=== PATIENT | female | born 1985 | race Two or more races ===

== ENCOUNTER 2024-08-04 14:58 | Emergency (ER) | payer MEDICAID, SELFPAY ==
[2024-08-04 15:14] VITALS: BP 125/64; PULSE 67; RESP 18; TEMP 36.6; O2SAT 99
--- NOTE | 2024-08-04 15:17 | XR_ITS ---
Examination: CT abdomen and pelvis without contrast. Coronal 3-D reconstructions. Sagittal 2-D reconstructions. Date and time of exam:August 04, 2024 1708 hrs. Indications: Abdominal pain beginning March 2024 CTDI: vol (mGy): 10.8 DLP: (mGycm): 659 Technique: Axial images of the abdomen have been obtained, 3 mm slice thickness Intravenous contrast material has not been administered. Low dose protocols were performed. One or more of the following dose reduction techniques were used; automated exposure control, adjustment of the mA and/or KV according to patient size, use of iterative reconstruction technique. Findings: No focal liver or splenic lesions No gallstones No pancreatic or adrenal mass No renal or ureteral calculi, no hydronephrosis 12 mm fat-containing umbilical hernia Normal appendix No bowel obstruction No diverticulitis Anteverted uterus No adnexal mass Urinary bladder intact Osseous structures intact Impression: No acute process in the abdomen or pelvis
--- NOTE | 2024-08-04 15:17 | XR_ITS ---
Examination: Pelvic ultrasound, transabdominal, complete Technique: Transabdominal ultrasound of the pelvis performed using grayscale imaging Date and time of exam: August 04, 2024 1605 hours INDICATIONS: Pelvic pain beginning one month ago FINDINGS: Uterus 8.8 x 4.3 x 5.6 cm No uterine mass or intrauterine gestation Endometrial sign 0.4 cm Right ovary 2.9 x 2.3 x 3.1 cm arterial flow 15 mm cyst Left ovary 2.8 x 1.4 x 2.3 cm arterial flow IMPRESSION: Negative examination
[2024-08-04 15:34] LABS: Basophils % (Auto) 0 % (0-2.5); Eosinophils # (Auto) 0.3 Thou/mm3 (0.0-0.5); Eosinophils % (Auto) 6 % (0-10); Immature Granulocytes % (Auto) 0 % (0-0); Immature Granulocytes Auto 0.02 Thou/mm3 (0.00-0.00); Lymphocytes # (Auto) 1.5 Thou/mm3 (1.0-4.8); Lymphocytes % (Auto) 27 % (10-50); Mean Corpuscular HGB Conc 34.2 g/dl (31.0-37.0); Mean Corpuscular Hemoglobin 29.6 pg (25.0-35.0); Mean Corpuscular Volume 87 fL (80-100); Monocytes # (Auto) 0.6 Thou/mm3 (0.0-0.8); Monocytes % (Auto) 11 % (0-12); Neutrophils # (Auto) 3.2 Thou/mm3 (1.8-7.7); Neutrophils % (Auto) 56 % (37-80); Nucleated Red Blood Cell % 0 /100 WBC (0); Platelet Count 254 Thou/mm3 (140-440); RDW Standard Deviation 39.3 fL (36.4-46.3); Red Blood Count 4.39 Miln/mm3 (4.00-5.20); White Blood Count 5.6 Thou/mm3 (3.6-11.0)
[2024-08-04 15:53] LABS: Alanine Aminotransferase 42 U/L (10-49); Albumin, Serum 4.8 gm/dL (3.5-5.0); Albumin/Globulin Ratio 1.6 (1.2-2.2); Alkaline Phosphatase 85 U/L (46-116); Anion Gap 6 (7-16); Aspartate Amino Transferase 35 U/L (0-34); BUN/Creatinine Ratio 11 Ratio (12-20); Bilirubin,Total 0.3 mg/dL (0.3-1.2); Blood Urea Nitrogen 8 mg/dL (9-23); Calcium 9.4 mg/dL (8.3-10.6); Calcium (Corrected) 9.4 mg/dL (8.5-10.1); Carbon Dioxide 29.3 mMol/L (20.0-31.0); Chloride 102 mMol/L (98-107); Creatinine (Component) 0.7 mg/dL (0.6-1.3); Glucose 93 mg/dL (74-106); Lipase 35 U/L (12-53); Osmolality,Calculated 272 (275-295); Potassium 3.9 mMol/L (3.4-5.1); Sodium 137 mMol/L (136-145); Total Protein 7.8 gm/dL (5.7-8.2); eGFR > 60 See Note
[2024-08-04 16:32] LABS: Collection Type, Urine Clean Catch
--- NOTE | 2024-08-04 16:35 | PD.EDRME ---
Rapid Medical Screening Exam RME Arrival date/time: 08/04/24 14:58 39-year-old female presents emergency department complains of back pain, abdominal pain and pelvic pain as well as dysuria Chief Complaint: Abdominal Pain Vital signs: Vital Signs Temperature 98 F 08/04/24 15:14 Pulse Rate 67 08/04/24 15:14 Respiratory Rate 18 08/04/24 15:14 Blood Pressure 125/64 08/04/24 15:14 Pulse Oximetry (%) 99 08/04/24 15:14 Oxygen Delivery Method Room Air 08/04/24 15:14
[2024-08-04 16:44] LABS: Bilirubin,Urine Negative (Negative); Blood,Urine Negative (Negative); Clarity,Urine Clear (Clear/Hazy); Color,Urine Lt-Yellow (Lt Yel-Yel); Culture Indicated,Urine Not Indicated; Glucose, Urine Negative (Negative); HCG Qualitative,Urine Negative; Ketones,Urine Negative (Negative); Leukocyte Esterase,Urine Negative (Negative); Nitrite,Urine Negative (Negative); PH,Urine 6.5 (5.0-7.0); Protein,Urine Negative (Neg - Trace); RBC,Urine < 1 /hpf (0-3); Specific Gravity,Urine 1.016 (1.001-1.035); Squamous Epithelial Cell,Urine 2 /hpf (0-5); Urobilinogen,Urine Negative mg/dL (0.0-1.0); WBC,Urine < 1 /hpf (0-5)
--- NOTE | 2024-08-04 16:50 | EDNOTE_ITS ---
ED General RME/HPI General Chief complaint: Abdominal Pain Stated complaint: abdominal pain since march. Dx: cysts Time Seen by Provider: 08/04/24 16:48 Arrival date/time: 08/04/24 14:58 CC: The back pain abdominal pain HPI ongoing for 1 week. Patient also states that she has dysuria. RME / HPI RME / HPI narrative: 08/04/24 14:58 39-year-old female presents emergency department complains of back pain, abdominal pain and pelvic pain as well as dysuria Related Data Home Medications ?Medication ?Instructions ?Recorded ?Confirmed vit no.95-ferrous 1 tab PO QDAY 03/16/18 09/07/18 fumarate 28 mg-folic acid 800 mcg tablet () Previous Rx's ?Medication ?Instructions ?Recorded hydrocodone 5 mg-acetaminophen 300 1 tab PO QID PRN pain #30 tabs 09/08/18 mg tablet (Vicodin) meloxicam 7.5 mg tablet 7.5 mg PO QDAY #10 tabs 08/04/24 Allergies Allergy/AdvReac Type Severity Reaction Status Date / Time No Known Allergies Allergy Verified 01/30/24 22:17 Review of Systems Review of Systems Narrative Review of Systems: GEN: No fever, no chills, no weight loss EYES: No discharge, no visual changes, no pain HEENT: No ear pain, no congestion, no sore throat PULM: No shortness of breath, no cough, no congestion CV: No chest pain, no dyspnea on exertion, no palpitations GI: No nausea, no vomiting, no diarrhea, + pain, no constipation : No frequency, no urgency, no dysuria MUSC/SKEL: No joint pain, no back pain SKIN: No rash PSYCH: No hallucinations, no depression HEME/LYMPH: No easy bleeding or bruising tendencies NEURO: No weakness, no headache Past Medical History Past Medical History NEUROLOGIC: Negative Neurological Disorders or Seizures CARDIAC: Negative Cardiac Disorders or Congestive Heart Failure RESPIRATORY: Negative Chronic Obstructive Pulmonary Disease (COPD) GASTROINTESTINAL: Negative Gastrointestinal Disorders or Hepatitis GENITOURINARY: Negative Genitourinary Disorders or Renal Disease MUSCULOSKELETAL: Negative Musculoskeletal Disorders ENDOCRINE: Negative Endocrine Disorders, Diabetes Mellitus Type 1 or Diabetes Mellitus Type 2 HEMATOLOGIC: Negative Blood Disorders OTHER HISTORY: Positive Blood Transfusions; Negative Hospitalization, Autoimmune Disease, Down Syndrome, Developmental Delay, Shingles, Falls, Blood Transfusion Reaction, Anesthesia Reactions, MRSA, Vancomycin-Resistant Enterococci, Human Immunodeficiency Virus (HIV), Chicken Pox, Measles, Mumps, Rubella (Tristanian Measles), Pertussis or Clostridium Difficile Family History FAMILY HISTORY: Negative Family Psychiatric Problems, Family Respiratory Disorders, Family Cardiac Disorders, Family Gastrointestinal Problems, Family Cancer, Family Surgery or Family Anesthesia Reaction Surgical History SURGICAL: Positive Abdominal Surgery; Negative Section Social History SMOKING STATUS: Never smoker ED Exam Narrative Physical exam: [General: Obese not in any acute distress Head normocephalic HEENT: Within acceptable limits Neck is supple nontender Chest equal chest rise nontender to palpation Respiratory: Clear to auscultation no wheezes crackles or rubs CV: Rate rhythm is regular no murmurs rubs or clicks Abdomen is distended secondary to body habitus soft nontender no masses positive bowel sounds all 4 quadrants Back: Mild lumbar paraspinal tenderness with palpation. No thoracic or cervical spine tenderness with palpation. Skin: Intact no petechiae rash induration ulceration or crepitus Extremities: Moving all extremity against resistance cap refill less than 2 seconds neurosensory intact Neuro: Awake alert oriented x3 Glascow coma 15 no focal deficits] Course Quality Measures VTE prophylaxis Orders Category Date Time Status CT abdomen pelvis wo con Stat Exams 08/04/24 15:17 Completed US pelvic complete Stat Exams 08/04/24 15:17 Completed CBC Stat Lab 08/04/24 15:20 Completed Comprehensive Metabolic Panel Stat Lab 08/04/24 15:20 Completed HCG Qualitative,Urine Stat Lab 08/04/24 16:20 Completed Lipase Stat Lab 08/04/24 15:20 Completed UA, C/S IF [Urinalysis, C/S if Indicated] Stat Lab 08/04/24 16:20 Completed Ketorolac Inj [Toradol Inj] Med 08/04/24 19:13 Discontinued 30 mg IM X1 ONE Vital Signs Vital signs: Vital Signs Temperature 98 F 08/04/24 15:14 Pulse Rate 67 08/04/24 15:14 Respiratory Rate 18 08/04/24 15:14 Blood Pressure 125/64 08/04/24 15:14 Pulse Oximetry (%) 99 08/04/24 15:14 Oxygen Delivery Method Room Air 08/04/24 15:14 [facility] Patient data External records reviewed:: [facility] previous records Clinical information provided by:: patient Social determinants that could affect healthcare access:: none Patient has the following chronic illnesses:: Obesity How is presenting disease/condition affected by chronic disease/condition?: u neffected by Evaluation data The following diagnostics were reviewed and interpreted by me:: lab results and radiology exam(s) Lab and/or radiology exams considered but not ordered:: CBC shows no acute leukocytosis anemia thrombocytopenia CMP shows no acute electrolyte imbalances renal impairment transaminitis or T. bili elevation Lipase is normal Urine is negative for UTI Interpretation Summary: Low abdominal pain Medications Medications considered but not ordered:: None Medication administrations:: Medication Administration History Discontinued Medications Ketorolac Tromethamine (Ketorolac Inj 60 Mg/2 Ml Vial) 30 mg IM X1 ONE Stop: 08/04/24 19:14 None Consultations Consultation(s) initiated? (list below): No Diagnosis Differential Diagnosis ED Complaint MDM: Low back strain abdominal pain ovarian cyst UTI Most likely diagnosis given after review of the tests above:: Low back strain abdominal pain Admission Indicated Admission indicated?: not indicated Explain why admission is indicated or not indicated:: Stable Admission Request Was there a request for admission?: No Disposition Plan Disposition Plan: Discharge Discharge Attestation Discharge Attestation: The patient and all family members were given an opportunity to ask questions and understood the discharge instructions. Discharge instructions specifically effects, indications for sooner follow up or return to the emergency department, and the expected course of current diagnosis. Patient condition: Stable Medical Decision Making Differential Diagnosis Differential Diagnosis: Low back strain abdominal pain ovarian cyst UTI Lab Data 08/04/24 15:20 08/04/24 15:20 Labs: Lab Results 08/04/24 08/04/24 Range/Units 15:20 16:20 WBC 5.6 (3.6-11.0) Thou/mm3 RBC 4.39 (4.00-5.20) Miln/mm3 Hgb 13.0 (12.0-16.0) g/dL Hct 38.0 (36.0-46.0) % MCV 87 (80-100) fL MCH 29.6 (25.0-35.0) pg MCHC 34.2 (31.0-37.0) g/dl RDW Std Deviation 39.3 (36.4-46.3) fL Plt Count 254 (140-440) Thou/mm3 Neut % (Auto) 56 (37-80) % Lymph % (Auto) 27 (10-50) % [place] % (Auto) 11 (0-12) % Eos % (Auto) 6 (0-10) % Baso % (Auto) 0 (0-2.5) % Neut # (Auto) 3.2 (1.8-7.7) Thou/mm3 Lymph # (Auto) 1.5 (1.0-4.8) Thou/mm3 [place] # (Auto) 0.6 (0.0-0.8) Thou/mm3 Eos # (Auto) 0.3 (0.0-0.5) Thou/mm3 Baso # (Auto) 0.0 (0.0-0.2) Thou/mm3 Immature Gran # (Auto) 0.02 H (0.00-0.00) Thou/mm3 Absolute Nucleated RBC 0.00 (0.00-0.00) Thou/mm3 Immature Gran % 0 (0-0) % Nucleated RBC % 0 (0) /100 WBC Sodium 137 (136-145) mMol/L Potassium 3.9 (3.4-5.1) mMol/L Chloride 102 (98-107) mMol/L Carbon Dioxide 29.3 (20.0-31.0) mMol/L Anion Gap 6 L (7-16) BUN 8 L (9-23) mg/dL Creatinine 0.7 (0.6-1.3) mg/dL Estim Creat Clear Calc Not Performed. eGFR > 60 (60 - ) See Note BUN/Creatinine Ratio 11 L (12-20) Ratio Glucose 93 (74-106) mg/dL Calculated Osmolality 272 L (275-295) Calcium 9.4 (8.3-10.6) mg/dL Corrected Calcium 9.4 (8.5-10.1) mg/dL Total Bilirubin 0.3 (0.3-1.2) mg/dL AST 35 H (0-34) U/L ALT 42 (10-49) U/L Alkaline Phosphatase 85 (46-116) U/L Total Protein 7.8 (5.7-8.2) gm/dL Albumin 4.8 (3.5-5.0) gm/dL Globulin 3.0 (2.3-3.5) gm/dL Albumin/Globulin Ratio 1.6 (1.2-2.2) Lipase 35 (12-53) U/L Ur Collection Type Clean Catch Urine Color Lt-Yellow (Lt Yel-Yel) Urine Clarity Clear (Clear/Hazy) Urine pH 6.5 (5.0-7.0) Ur Specific [place] 1.016 (1.001-1.035) Urine Protein Negative (Neg - Trace) Urine Glucose (UA) Negative (Negative) Urine Ketones Negative (Negative) Urine Blood Negative (Negative) Urine Nitrite Negative (Negative) Urine Bilirubin Negative (Negative) Urine Urobilinogen (Auto) Negative (0.0-1.0) mg/dL Ur Leukocyte Esterase Negative (Negative) Urine RBC < 1 (0-3) /hpf Urine WBC < 1 (0-5) /hpf Ur Squamous Epith Cells 2 (0-5) /hpf Urine Bacteria None (None) Ur Culture Indicated? Not Indicated Urine HCG, Qual Negative Discharge Plan Plan Patient Disposition: HOME (Self Care) Patient condition on transfer: Stable Prescriptions/Referrals Prescriptions/Med Rec: New meloxicam 7.5 mg tablet 7.5 mg PO QDAY Qty: 10 0RF No Action PNV cmb#95-ferrous fumarate-FA [] 28 mg iron- 800 mcg Tablet 1 tab PO QDAY hydrocodone-acetaminophen [Vicodin] 5-300 mg tablet 1 tab PO QID MDD 5 PRN (Reason: pain) Qty: 30 0RF Referrals: Fer Livingston MD [Primary Care Provider] - In 1 week Problem List Clinical Impression: Abdominal pain, Low back pain Patient/Caregiver Discharge Instructions Other Activity Instructions:: Take the medications as prescribed if there is a worsening of symptoms follow-up with your primary care doctor. Or return to the emergency room for reevaluation. Education Materials: Abdominal Pain, Back Safety: Basics of Good Posture, ED Back and Neck Pain, General Print Language: Kinyarwanda Stand Alone Forms: Anahy Award Info., Patient Portal Info Letter, Work/School Release PA/LEONIDES Supervising Physician PA/LEONIDES Supervising Physician: Syd Awan ENP
[2024-08-04 17:19] VITALS: BP 107/71; PULSE 63; RESP 16; TEMP 36.4; O2SAT 97
[2024-08-04] MEDS: KETOROLAC INJ 60 MG/2 ML VIAL 30 MG IM (19:31)
== END 2024-08-04 19:39 | disposition home or self-care (01) ==
PROVIDERS: Nurse Practitioner Primary Care; Emergency Provider Emergency Medicine; PCP Family Medicine
DX: R10.9 Unspecified abdominal pain (principal); M54.50 Low back pain, unspecified; R10.2 Pelvic and perineal pain
CPT/HCPCS: 36415; 74176; 76856; 80053; 81001; 81025; 83690; 85025; 96372; 99284; J1885

== ENCOUNTER → 2024-09-24 | Outpatient (BNVA) | payer MEDICAID, SELFPAY | END | disposition home or self-care (01) | PROVIDERS: PCP Nurse Practitioner Family; Referring Provider Nurse Practitioner Family; Visit Provider Nurse Practitioner Family | DX: H66.92 Otitis media, unspecified, left ear (principal); J06.9 Acute upper respiratory infection, unspecified | CPT/HCPCS: 87804; 87811; 99212 ==

== ENCOUNTER 2025-03-07 09:18 | Emergency (ER) | payer MEDICAID, SELFPAY ==
[2025-03-07 09:39] VITALS: BP 125/84; PULSE 70; RESP 17; TEMP 36.9; O2SAT 98; BMI 32.4
--- NOTE | 2025-03-07 09:51 | XR_ITS ---
Examination: CT abdomen and pelvis without contrast. Coronal 3-D reconstructions. Sagittal 2-D reconstructions. Date and time of exam:March 07, 2025 1128 hours Comparison May 05, 2014 INDICATIONS: Lower abdominal pain nausea vomiting today CTDI: vol (mGy): 10.7 DLP: (mGycm): 647 Technique: Axial images of the abdomen have been obtained, 3 mm slice thickness Intravenous contrast material has not been administered. Low dose protocols were performed. One or more of the following dose reduction techniques were used; automated exposure control, adjustment of the mA and/or KV according to patient size, use of iterative reconstruction technique. Findings: No focal liver or splenic lesions No gallstones No pancreatic edema. No renal or ureteral calculi, no hydronephrosis Tiny fat-containing umbilical hernia No pericecal inflammatory change No bowel obstruction or diverticulitis No pelvic mass Contracted urinary bladder The osseous structures are intact IMPRESSION: No renal or ureteral calculi, no hydronephrosis No CT findings of appendicitis bowel obstruction or diverticulitis Osseous structures intact 12 mm fat-containing umbilical hernia
--- NOTE | 2025-03-07 09:52 | EDNOTE_ITS ---
ED Abdominal Pain RME/HPI General Chief Complaint: Abdominal Pain Stated complaint: LOWER ABD PAIN, NAUSEA X 1 MO, DIZZY Time seen by provider: 03/07/25 09:43 Arrival date/time: 03/07/25 09:18 39-year-old female with no known medical history presents to the emergency room with a chief complaint of lower pelvic pain, nausea x 1 month Source: patient Mode of arrival: ambulatory Limitations: no limitations Related Data Home Medications ?Medication ?Instructions ?Recorded ?Confirmed fexofenadine 180 mg tablet 180 mg PO QDAY 09/24/2403/11 ([facility]) Previous Rx's ?Medication ?Instructions ?Recorded ibuprofen 800 mg tablet 800 mg PO Q8H PRN pain #30 t abs 09/24/24 Allergies Allergy/AdvReac Type Severity Reaction Status Date / Time No Known Allergies Allergy Verified 03/07/25 09:22 Review of Systems Review of Systems Systems Reviewed: All systems reviewed, normal except as documented Constitutional Constitutional: Reports system reviewed and no additional complaints, except as documented, Denies fatigue, Denies fever(s), Denies headache(s) and Denies weakness Eyes Eyes: Reports system reviewed and no additional complaints, except as documented, Denies blurry vision and Denies change in vision ENT Ears, Nose, Mouth, and Throat: Reports system reviewed and no additional complaints, except as documented, Denies otalgia, Denies headache(s), Denies nasal congestion, Denies throat swelling and Denies vertigo Cardiovascular Cardiovascular: Reports system reviewed and no additional complaints, except as documented, Denies chest pain, Denies dyspnea and Denies dyspnea on exertion Respiratory Respiratory: Reports system reviewed and no additional complaints, except as documented, Denies chest congestion, Denies cough, Denies dyspnea, Denies dyspnea on exertion and Denies wheezing Gastrointestinal Gastrointestinal: Reports abdominal pain, Reports cramping, Reports nausea and Reports vomiting Genitourinary Genitourinary: Reports system reviewed and no additional complaints, except as documented Musculoskeletal Musculoskeletal: Reports system reviewed and no additional complaints, except as documented and Denies back pain Integumentary/Breasts Skin/Breast: Reports system reviewed and no additional complaints, except as documented and Denies wounds Neurologic Neurologic: Reports system reviewed and no additional complaints, except as documented, Denies confusion, Denies headache(s), Denies lack of coordination, Denies vertigo and Denies weakness Psychiatric Psychiatric: Reports system reviewed and no additional complaints, except as documented, Denies anxiety, Denies confusion, Denies depression, Denies paranoia, Denies suicidal ideation and Denies tactile hallucinations Endocrine Endocrine: Reports system reviewed and no additional complaints, except as documented and Denies fatigue Hematologic/Lymphatic Hematologic/Lymphatic: Reports system reviewed and no additional complaints, except as documented and Denies lymphadenopathy Allergic/Immunologic Allergic/Immunologic: Reports system reviewed and no additional complaints, except as documented, Denies throat swelling, Denies urticaria and Denies wheezing ED Exam General Limitations: Present no limitations General appearance: Present alert and in no apparent distress Head Head exam: Present atraumatic Eye Eye exam: Present normal appearance, PERRL and EOMI ENT ENT exam: Present normal exam, normal oropharynx and mucous membranes moist Neck Neck exam: Present normal inspection, full ROM and trachea midline Chest Chest inspection: Present normal inspection and symmetric chest wall rise Respiratory Respiratory exam: Present normal lung sounds bilaterally Cardiovascular Cardiovascular exam: Present regular rate, normal rhythm and normal heart sounds Abdominal Exam Abdominal exam: Present soft, tenderness and normal bowel sounds; Absent distention or guarding Abdominal tenderness: Present RUQ, RLQ, LUQ, LLQ, suprapubic and moderate Extremities Exam Extremities exam: Present normal inspection and full ROM Back Exam Back exam: Present normal inspection and full ROM Neurological Exam Neurological exam: Present alert, oriented X3 and CN II-XII intact Psychiatric Psychiatric exam: Present normal affect and normal mood Skin Skin exam: Present warm, dry, intact and normal color Course Quality Measures none Orders Category Date Time Status CT abdomen pelvis wo con Stat Exams 03/07/25 09:51 Completed CBC Stat Lab 03/07/25 10:01 Completed CMP [Comprehensive Metabolic Panel] Stat Lab 03/07/25 10:01 Completed HCG Qualitative,Urine Stat Lab 03/07/25 10:07 Completed Lipase Stat Lab 03/07/25 10:01 Completed UA [Urinalysis] Stat Lab 03/07/25 10:07 Completed Urine Culture Stat Lab 03/07/25 10:07 Received HYDROcodone*/APAP 5/325 [Cross[place] 5/325] Med 03/07/25 09:51 Discontinued 1 tab PO X1 ONE Ondansetron Odt [Zofran Odt] Med 03/07/25 09:52 Discontinued 4 mg PO X1 ONE Vital Signs Vital signs: Vital Signs Temperature 98.5 F 03/07/25 09:39 Pulse Rate 70 03/07/25 09:39 Respiratory Rate 17 03/07/25 09:39 Blood Pressure 125/84 03/07/25 09:39 Pulse Oximetry (%) 98 03/07/25 09:39 Oxygen Delivery Method Room Air 03/07/25 09:39 Abdominal Pain MDM MDM Narrative MDM Narrative:: 39-year-old female with no known medical history presents to the emergency room with a chief complaint of lower pelvic pain, nausea x 1 month Patient is hemodynamically stable and in no apparent distress Physical examination shows pain and tenderness to the lower pelvic area. Patient states she has a history of an umbilical hernia. A CT of the abdomen and pelvis was completed and shows no findings of any appendicitis bowel obstruction or diverticulitis. There was a 12 mm fat-containing umbilical hernia that is not incarcerated CBC CMP and urinalysis were within normal limits Patient was discharged and educated to follow-up with primary care provider in the next 24 to 48 hours and return to the emergency room for any evidence of worsening signs or symptoms Patient data External records reviewed:: [facility] previous records Clinical information provided by:: patient Social determinants that could affect healthcare access:: none Patient has the following chronic illnesses:: No chronic illness How is presenting disease/condition affected by chronic disease/condition?: no chronic disease Evaluation data The following diagnostics were reviewed and interpreted by me:: lab results and radiology exam(s) Lab and/or radiology exams considered but not ordered:: Labs and radiology exams considered in order Interpretation Summary: CT abdomen and pelvis-Findings: No focal liver or splenic lesions No gallstones No pancreatic edema. No renal or ureteral calculi, no hydronephrosis Tiny fat-containing umbilical hernia No pericecal inflammatory change No bowel obstruction or diverticulitis No pelvic mass Contracted urinary bladder The osseous structures are intact IMPRESSION: No renal or ureteral calculi, no hydronephrosis No CT findings of appendicitis bowel obstruction or diverticulitis Osseous structures intact 12 mm fat-containing umbilical hernia Medications / Prescriptions Medications or Prescriptions considered but not ordered:: Medication given Medication administrations:: Medication Administration History Discontinued Medications Hydrocodone Bitart/Acetaminophen (Hydrocodone/Apap 5/325 Tablet) 1 tab PO X1 ONE Stop: 03/07/25 09:52 Last Admin: 03/07/25 09:58 Dose: 1 tab Documented By: OA Ondansetron HCl (Ondansetron Odt 4 Mg Tabrap) 4 mg PO X1 ONE; Protocol Stop: 03/07/25 09:53 Last Admin: 03/07/25 09:59 Dose: 4 mg Documented By: JJ Medication given Consultations Consultation(s) initiated? (list below): No Diagnosis Differential diagnosis abdominal pain: abdominal pain, constipation, gastroenteritis and other (Incarcerated hernia/ovarian cyst) Most likely diagnosis given after review of the tests above:: Gastroenteritis Admission Indicated Admission indicated?: not indicated Admission Request Was there a request for admission?: No Disposition Plan Disposition Plan: Discharge Discharge Attestation Discharge Attestation: The patient and all family members were given an opportunity to ask questions and understood the discharge instructions. Discharge instructions specifically effects, indications for sooner follow up or return to the emergency department, and the expected course of current diagnosis. Patient condition: Stable Discharge Plan Plan Patient Disposition: HOME (Self Care) Discharge Disposition comment: Stable Prescriptions/Referrals Prescriptions/Med Rec: No Action fexofenadine [Erma Allergy] 180 mg tablet 180 mg PO QDAY ibuprofen 800 mg tablet 800 mg PO Q8H PRN (Reason: pain) Qty: 30 0RF Referrals: Fer Livingston MD [Primary Care Provider] - In 1 week Problem List Clinical Impression: Umbilical hernia, Gastroenteritis Patient/Caregiver Discharge Instructions Education Materials: ED Gastroenteritis, Noninfectious, ED Hernia (Adult) Additional Instructions: Por favor, consulte con solis m?dico de cabecera en las pr?ximas 24 a 48 horas. Se realiz? michael tomograf?a computarizada de abdomen y pelvis, la cual result? negativa para cualquier hallazgo yoseph. Solis hernia umbilical persiste. Por favor, consulte con solis m?dico de cabecera, ya que ser? necesario derivarlo a un cirujano general para extirpar esta hernia ambulatoria. Miri an?lisis de marlyn y orina se encontraron dentro de los l?mites normales. Si observa cualquier signo de empeoramiento de los signos o s?ntomas, acuda a urgencias de inmediato. Print Language: Slovenian Stand Alone Forms: Anahy Award Info., Patient Portal Info Letter PA/MANAGER NEW PRODUCT Supervising Physician PA/MANAGER NEW PRODUCT Supervising Physician: Dr. Escoto
[2025-03-07] MEDS: HYDROcodone/APAP 5/325 TABLET 1 TAB PO (09:58)
[2025-03-07] MEDS: ONDANSETRON ODT 4 MG TABRAP PO (09:59)
[2025-03-07 10:12] LABS: Collection Type, Urine Clean Catch
[2025-03-07 10:36] LABS: Basophils # (Auto) 0.0 Thou/mm3 (0.0-0.2); Basophils % (Auto) 0 % (0-2.5); Eosinophils # (Auto) 0.1 Thou/mm3 (0.0-0.5); Eosinophils % (Auto) 1 % (0-10); Hematocrit 35.4 % (36.0-46.0); Hemoglobin 11.9 g/dL (12.0-16.0); Immature Granulocytes Auto 0.02 Thou/mm3 (0.00-0.00); Lymphocytes # (Auto) 1.3 Thou/mm3 (1.0-4.8); Lymphocytes % (Auto) 28 % (10-50); Mean Corpuscular HGB Conc 33.6 g/dl (31.0-37.0); Mean Corpuscular Hemoglobin 29.9 pg (25.0-35.0); Mean Corpuscular Volume 89 fL (80-100); Monocytes # (Auto) 0.4 Thou/mm3 (0.0-0.8); Monocytes % (Auto) 8 % (0-12); Neutrophils # (Auto) 2.9 Thou/mm3 (1.8-7.7); Neutrophils % (Auto) 62 % (37-80); Nucleated Red Blood Cell # 0.00 Thou/mm3 (0.00-0.00); Nucleated Red Blood Cell % 0 /100 WBC (0); Platelet Count 302 Thou/mm3 (140-440); RDW Standard Deviation 42.7 fL (36.4-46.3); Red Blood Count 3.98 Miln/mm3 (4.00-5.20); White Blood Count 4.7 Thou/mm3 (3.6-11.0)
[2025-03-07 10:44] LABS: Alanine Aminotransferase 48 U/L (10-49); Albumin, Serum 4.5 gm/dL (3.5-5.0); Albumin/Globulin Ratio 1.7 (1.2-2.2); Alkaline Phosphatase 78 U/L (46-116); Anion Gap 12 (7-16); Aspartate Amino Transferase 37 U/L (0-34); BUN/Creatinine Ratio 10 Ratio (12-20); Bilirubin,Total 0.2 mg/dL (0.3-1.2); Blood Urea Nitrogen 6 mg/dL (9-23); Calcium 8.8 mg/dL (8.3-10.6); Calcium (Corrected) 8.8 mg/dL (8.5-10.1); Carbon Dioxide 24.8 mMol/L (20.0-31.0); Chloride 107 mMol/L (98-107); Creatinine (Component) 0.6 mg/dL (0.6-1.3); Estimated Creatinine Clearance 135.5 mL/min (>60); Globulin 2.6 gm/dL (2.3-3.5); Glucose 92 mg/dL (74-106); Lipase 29 U/L (12-53); Osmolality,Calculated 284 (275-295); Potassium 3.8 mMol/L (3.4-5.1); Sodium 144 mMol/L (136-145); Total Protein 7.1 gm/dL (5.7-8.2); eGFR > 60 See Note
[2025-03-07 10:59] LABS: HCG Qualitative,Urine Negative
[2025-03-07 11:09] LABS: Bilirubin,Urine Negative (Negative); Blood,Urine 3+ (Negative); Clarity,Urine Clear (Clear/Hazy); Color,Urine Lt-Yellow (Lt Yel-Yel); Glucose, Urine Negative (Negative); Ketones,Urine Negative (Negative); Leukocyte Esterase,Urine Negative (Negative); Nitrite,Urine Negative (Negative); PH,Urine 6.0 (5.0-7.0); Protein,Urine Negative (Neg - Trace); RBC,Urine 1 /hpf (0-3); Specific Gravity,Urine 1.022 (1.001-1.035); Squamous Epithelial Cell,Urine 11 /hpf (0-5); Urobilinogen,Urine Negative mg/dL (0.0-1.0); WBC,Urine 2 /hpf (0-5)
== END 2025-03-07 12:09 | disposition home or self-care (01) ==
PROVIDERS: Emergency Provider Nurse Practitioner Family; PCP Family Medicine
DX: K52.9 Noninfective gastroenteritis and colitis, unspecified (principal); K42.9 Umbilical hernia without obstruction or gangrene
CPT/HCPCS: 36415; 74176; 80053; 81001; 81025; 83690; 85025; 87077; 87086; 87186; 99283; Q0162; A9270